=== PATIENT | female | born 1965 | race Caucasian/White ===

== ENCOUNTER 2018-02-02 14:18 | Emergency (ER) | payer MEDICAID, SELFPAY ==
[~2018-02-02] VITALS: Ht 170.2 cm; Wt 57.0 kg
[2018-02-02 16:43] VITALS: BP 188/92
== END 2018-02-02 17:08 | disposition left against medical advice (07) ==
LOC: ED 17:02
DX: R21 Rash and other nonspecific skin eruption (principal); F15.10 Other stimulant abuse, uncomplicated; I10 Essential (primary) hypertension
CPT/HCPCS: 99281